=== PATIENT | male | born 1970 | race Caucasian/White ===

== ENCOUNTER 2021-04-30 07:57 | Day surgery (SDC) | payer BC ==
[2021-04-24 14:20] VITALS: BMI 27.2
[2021-04-30 08:13] VITALS: TEMP 97.3
[2021-04-30] MEDS: LACTATED RINGERS 1,000 ML IV SCH ×2 (08:25→08:41)
[2021-04-30 08:28] LABS: Glucose,Whole Blood 189 mg/dL (75-99)
[2021-04-30] MEDS ORDERED: LABETALOL 5 MG/ML VIAL MDV IVP ONE (08:34)
[2021-04-30] MEDS ORDERED: PROPOFOL 10 MG/ML 20 ML VIAL IV ONE (08:43)
--- NOTE | 2021-04-30 08:57 | P.GSHP ---
History of Present Illness H&P Date: 04/30/21 Chief Complaint: Rectal bleeding 50-year-old male here today for colonoscopy. He has not had 1 previously. Says he has mild perianal discomfort and some bleeding occasionally with bowel movements. No heavy bleeding. No family history of colon cancer. Past Medical History Past Medical History: Diabetes Mellitus, Hyperlipidemia, Hypertension History of Any Multi-Drug Resistant Organisms: None Reported Additional Past Surgical History / Comment(s): wisdom teeth removed Past Anesthesia/Blood Transfusion Reactions: No Reported Reaction Smoking Status: Never smoker Medications and Allergies Home Medications Medication Instructions Recorded Confirmed Type Atorvastatin [Lipitor] 20 mg PO HS 04/24/21 04/24/21 History Benazepril HCl [Lotensin] 20 mg PO DAILY 04/24/21 04/24/21 History Dapagliflozin Propanediol [Farxiga] 10 mg PO DAILY 04/24/21 04/24/21 History Multivitamins, Thera [Multivitamin 1 tab PO DAILY 04/24/21 04/30/21 History (formulary)] Naproxen [Naprosyn] 500 mg PO Q12HR PRN 04/24/21 04/24/21 History Pryor-3 Fatty Acids/Fish Oil [Fish 1 each PO DAILY 04/24/21 04/24/21 History Oil 1,000 mg Softgel] sitaGLIPtin PHOS/metFORMIN HCL 1 each PO BID 04/24/21 04/24/21 History [Janumet 50-1,000 mg Tablet] Allergies Allergy/AdvReac Type Severity Reaction Status Date / Time No Known Allergies Allergy Verified 04/24/21 14:02 Surgical - Exam Vital Signs Temp Pulse Resp BP Pulse Ox 97.3 F L 110 H 18 157/106 100 04/30/21 08:09 04/30/21 08:09 04/30/21 08:09 04/30/21 08:09 04/30/21 08:09 Physical exam: General: Well-developed, well-nourished HEENT: Normocephalic, sclerae nonicteric Abdomen: Nontender, nondistended Extremities: No edema Neuro: Alert and oriented Results - Labs Abnormal Lab Results - Last 24 Hours (Table) 04/30/21 Range/Units 08:26 POC Glucose (mg/dL) 189 H (75-99) mg/dL Assessment and Plan (1) Rectal bleeding Narrative/Plan: Will proceed with colonoscopy at this time Current Visit: Yes Status: Acute Code(s): K62.5 - HEMORRHAGE OF ANUS AND RECTUM SNOMED Code(s): 48271049
--- NOTE | 2021-04-30 09:18 | P.PCN ---
Date of Procedure: 04/30/21 Procedure(s) Performed: PREOPERATIVE DIAGNOSIS: Rectal bleeding POSTOPERATIVE DIAGNOSIS: Normal exam PROCEDURE: Colonoscopy ANESTHESIA: MAC SURGEON: Ernesto Vazquez M.D. SPECIMENS: None ENDOSCOPIC PROCEDURE: The patient was placed on the endoscopy table in the left decubitus position. The Olympus colonoscope was inserted into the anus and passed under direct visualization to the base of the cecum. The appendiceal orifice was visualized. From that point the scope was slowly withdrawn inspecting all surfaces carefully. There were no neoplastic inflammatory or polypoid lesions throughout the cecum, ascending, transverse, descending, sigmoid and rectum. There was no visible diverticulosis noted. Digital rectal examination was normal. No definite hemorrhoidal disease or fissures were seen. The patient was taken to the recovery room in stable condition per anesthesia guidelines. RECOMMENDATIONS: Patient with intermittent rectal bleeding associated with pain. Suspect intermittent anal fissure as the etiology. Increase dietary fiber. Patient will be asked to follow-up with us of rectal bleeding increases or persists.
[2021-04-30 09:35] VITALS: BP 138/83; PULSE 90; RESP 18
== END 2021-04-30 10:17 | disposition home or self-care (01) ==
LOC: ORWHC2ENDO 07:57
PROVIDERS: ATTEND Surgery
DX: K62.5 Hemorrhage of anus and rectum (principal); E11.9 Type 2 diabetes mellitus without complications; E78.5 Hyperlipidemia, unspecified; I10 Essential (primary) hypertension
CPT/HCPCS: 45378; J2704